=== PATIENT | male | born 1970 | race Caucasian/White ===

== ENCOUNTER → 2017-01-07 | Outpatient (CLI) | payer MEDICAID | LOC: BRMIMAGING 11:41 | PROVIDERS: ATTEND Registered Nurse | DX: M99.71 Connective tissue and disc stenosis of intervertebral foramina of cervical region (principal); M51.36 Other intervertebral disc degeneration, lumbar region; M47.894 Other spondylosis, thoracic region; M47.896 Other spondylosis, lumbar region | CPT/HCPCS: 72050-PO; 72100-PO ==

== ENCOUNTER → 2017-08-21 | Outpatient (CLI) | payer MEDICAID | LOC: BRMIMAGING 12:14 | PROVIDERS: ATTEND Registered Nurse | DX: R39.11 Hesitancy of micturition (principal); Z90.49 Acquired absence of other specified parts of digestive tract | CPT/HCPCS: 74000-PO ==